=== PATIENT | male | born 1970 | race African-American/Black ===

== ENCOUNTER 2020-02-07 09:24 | Emergency (ER) | payer OTHER ==
[~2020-02-07] VITALS: Ht 167.6 cm; Wt 108.0 kg
[2020-02-07 09:25] VITALS: BP 185/119
[2020-02-07] MEDS ORDERED: VIBRAMYCIN 100100 MG PO (09:51)
== END 2020-02-07 10:01 | disposition home or self-care (01) ==
LOC: ER 09:24
DX: S40.262A Insect bite (nonvenomous) of left shoulder, initial encounter (principal); L03.114 Cellulitis of left upper limb; F17.210 Nicotine dependence, cigarettes, uncomplicated; E11.65 Type 2 diabetes mellitus with hyperglycemia; W57.XXXA Bitten or stung by nonvenomous insect and other nonvenomous arthropods, initial encounter; Y93.89 Activity, other specified; Y92.89 Other specified places as the place of occurrence of the external cause; Y99.8 Other external cause status